=== PATIENT | female | born 1930 | race Caucasian/White ===

== ENCOUNTER 2019-05-02 13:14 | Inpatient (IN) ==
--- NOTE | 2019-05-02 14:54 | Diag Imaging Result Doc PS360 ---
CHEST-1 VIEW - 05/02/2019 INDICATION: fall, injury COMPARISON: None FINDINGS: There is a left-sided dual-chamber pacemaker in good position. There is mild cardiomegaly and pulmonary vascular congestion. There is a small right basilar pleural effusion. No dense infiltrates or definite pulmonary edema. IMPRESSION: Cardiomegaly and pulmonary vascular congestion. Small nonspecific right pleural effusion. Electronically signed by Tay Farley 05/02/2019 2:51 PM
--- NOTE | 2019-05-02 15:01 | Diag Imaging Result Doc PS360 ---
CT T-SPINE/L-SPINE W/O CON - 05/02/2019 INDICATION: fall injury COMPARISON: None FINDINGS: Alignment is anatomic. There is advanced multilevel degenerative disc disease globally throughout the thoracic and lumbar spine. There is a small to moderate right pleural effusion. There are nondisplaced posterior rib fractures on the right side, ribs #11 and 12. No pneumothorax. No other infiltrates throughout the lungs. No evidence of edema. There is cardiomegaly. Vertebral body heights are preserved. There are slightly displaced right-sided transverse process fractures at L2, L3, and L4. There are small bilateral nonobstructing renal stones. There is extremely severe, diffuse vascular calcification of the aorta and all of its branches. IMPRESSION: 1. Acute nondisplaced posterior right rib fractures. 2. Acute fractures of right-sided transverse processes of L2, L3, and L4. 3. Small to moderate right pleural effusion. 4. Small nonobstructing bilateral renal stones. This exam was performed using automated exposure control, adjustment of mA or kV according to patient size, and/or use of iterative reconstruction technique Electronically signed by Tay Farley 05/02/2019 2:59 PM
--- NOTE | 2019-05-02 15:09 | Diag Imaging Result Doc PS360 ---
EXAM: CT HEAD/C-SPINE W/O CONTRAST HISTORY: head injury/pain TECHNIQUE: Routine noncontrasted CT scan of the brain and cervical spine as per standard protocol. Dose reduction technique. COMPARISON: None. FINDINGS: Head: There is no evidence for hemorrhage, hydrocephalus, mass effect, or fluid collection. There is cerebral atrophy and microvascular disease. The calvarium is intact. Cervical Spine: There is no prevertebral soft tissue swelling. Alignment is anatomic. No fracture or subluxation is appreciated. There is degenerative uncovertebral and facet joint hypertrophy IMPRESSION: No acute intracranial abnormality. No acute abnormalities cervical spine. . This exam was performed using automated exposure control, adjustment of mA or kV according to patient size, and/or use of iterative reconstruction technique. Electronically signed by Lyric Claudio 05/02/2019 3:07 PM
[2019-05-02 15:52] LABS: BILIRUBIN URINE NEGATIVE (NEGATIVE); BLOOD URINE TRACE (NEGATIVE); CLARITY SL. CLOUDY (CLEAR); COLOR YELLOW; GLUCOSE URINE NEGATIVE (NEGATIVE); KETONE URINE NEGATIVE (NEGATIVE); LEUKOCYTES URINE TRACE (NEGATIVE); NITRITE URINE NEGATIVE (NEGATIVE); PH URINE 6.5; PROTEIN URINE 2+(100 mg/dL) mg/dL (NEGATIVE); UROBILINOGEN URINE NORMAL
[2019-05-02 16:01] LABS: HEMATOCRIT 29.3 % (37.0-47.0); HEMOGLOBIN 9.3 g/dL (12.0-16.0); MCH 27.8 PG (27-31); MCHC 31.7 g/dL (33-37); MCV 87.5 FL (81-99); RBC 3.35 XMIL (4.2-5.4); WBC 11.32 X1000 (4.8-10.8)
[2019-05-02 16:02] LABS: BASO# 0.03 X1000 (0.0-0.2); BASO% 0.3 % (0.0-0.8); EOS% 0.9 % (0.0-10.0); IMM GRAN# 0.02 X1000 (0.0-0.04); IMM GRAN% 0.2 % (0.0-0.5); LYMPH# 2.07 X1000 (1.2-3.4); LYMPH% 18.3 % (20.5-51.1); MONO# 2.07 X1000 (0.11-0.59); MONO% 18.3 % (1.7-9.3); MPV 12.3 FL (7.4-10.4); NEUT# 7.03 X1000 (1.4-6.5); PLT 240 X1000 (130-400); RDW 14.3 % (11.5-14.5)
[2019-05-02 16:12] LABS: ALBUMIN 3.2 g/dL (3.5-5.0); CALCIUM 8.3 mg/dL (8.8-10.2); CREATININE 2.2 mg/dL (0.5-0.9); POTASSIUM 3.6 mmol/L (3.5-5.1); TOTAL BILIRUBIN 0.5 mg/dL (0.20-1.00); TOTAL PROTEIN 6.1 g/dL (6.3-8.3)
[2019-05-02 16:16] LABS: URINE WBC <10 /HPF (<10)
[2019-05-02 16:17] LABS: URINE BACTERIA 1+ /HFP; URINE CAST NONE SEEN /LPF; URINE CRYSTAL NONE SEEN /HPF; URINE EPITHELIAL CELLS <10 /HPF (<10); URINE RBC <10 /HPF (<10); URINE SMALL ROUND CELLS TRANSITIONAL PRESENT; URINE YEAST NONE SEEN /HPF
[2019-05-02 16:18] LABS: URINE SOURCE CATH
--- NOTE | 2019-05-02 16:42 | PROVIDER DOCUMENTATION ---
This chart was entered by Kayleigh Rivas Scribe, acting as scribe for Gautam Bucio MD. HPI-General Adult - General Chief Complaint: Fall Stated Complaint: Fall Time Seen by Provider: 05/02/19 13:33 Source: patient, family (daughter oscar), EMS Allergies/Adverse Reactions: Patient Allergies Allergy/AdvReac Type Severity Reaction Status Date / Time meperidine [From Demerol] Allergy DIZZINESS Verified 05/02/19 13:25 Home Medications: Home Medication List Medication Instructions Recorded Confirmed Last Taken Type Acetaminophen [Arthritis Pain] 650 mg PO Q8HR 05/02/19 05/02/19 Unknown History Alprazolam 1 mg PO TID 05/02/19 05/02/19 Unknown History Amlodipine [Norvasc] 10 mg PO DAILY 05/02/19 05/02/19 Unknown History Apixaban [Eliquis] 2.5 mg PO BID 05/02/19 05/02/19 Unknown History Carvedilol 25 mg PO BID 05/02/19 05/02/19 Unknown History Cephalexin [Keflex] 500 mg PO TID 05/02/19 05/02/19 Unknown History Clobetasol Prop 0.05% Cream 0.5 mg TOP DAILY 05/02/19 05/02/19 Unknown History [Temovate 0.05% Cream] Clonidine HCl 0.1 mg PO TID 05/02/19 05/02/19 Unknown History Cyclobenzaprine [Flexeril] 10 mg PO QHS 05/02/19 05/02/19 Unknown History Dronedarone HCl [Multaq] 0.5 tab PO BID 05/02/19 05/02/19 Unknown History Duloxetine [Cymbalta] 60 mg PO DAILY 05/02/19 05/02/19 Unknown History Fenofibrate,Micronized 134 mg PO QHS 05/02/19 05/02/19 Unknown History [Fenofibrate] Fluphenazine [Prolixin] 1 mg PO DAILY 05/02/19 05/02/19 Unknown History Furosemide [Lasix] 20 mg PO DAILY 05/02/19 05/02/19 Unknown History Hydralazine [Apresoline] 75 mg PO TID 05/02/19 05/02/19 Unknown History Hyoscyamine Sulfate [Hyosyne] 0.125 mg PO Q4HR 05/02/19 05/02/19 Unknown History LISINOpril [Prinivil] 20 mg PO BID 05/02/19 05/02/19 Unknown History Levothyroxine [Synthroid] 75 microgm PO DAILY 05/02/19 05/02/19 Unknown History Lorazepam 0.25 mg IJ Q4HR 05/02/19 05/02/19 Unknown History Meclizine [Antivert] 1 tab PO TID 05/02/19 05/02/19 Unknown History Morphine Sulfate/Pf [Morphine 1 0.25 mg IJ DAILY PRN PRN 05/02/19 05/02/19 Unknown History mg/ml Vial] [place]-3 Fatty Acids/Fish Oil [Fish 1 cap PO DAILY 05/02/19 05/02/19 Unknown History Oil 1,000 mg Capsule] Pravastatin Sodium 80 mg PO QHS 05/02/19 05/02/19 Unknown History Sennosides/Docusate Sodium 1 - 4 tab PO DAILY 05/02/19 05/02/19 Unknown History [Senna-S Tablet] Tramadol [Ultram] 1 tab PO Q4-6H PRN PRN 05/02/19 05/02/19 Unknown History - History of Present Illness -Gen Adult Nature of Presenting Problems: 88 yowf presents to the ed via ems (first response) with increase of falls, balance issues, confusion and failed out tx for UTI. pt started 2nd round of abx today and was told by hospice nurse not to take blood thinner dose today. pt is on hospice and was sent to ed to be seen by hospice nurse. pt on exam has a healing skin tear and abrasions noted to RLE with bandage in place. pt will answer questions appropriately when asked directly but otherwise daughter speaks for the pt. pt on exams nontoxic in appearance Location of Pain/Injury: reports: lower extremity, generalized (weakness) Quality of Pain: reports: aching Severity: reports: moderate Onset/Duration: reports: 1 week ago (frequent falls) Timing: reports: still present, intermittent Context/Activities at Onset: reports: light activity Modifying Factors: improves with: nothing. worse with: movement Associated Symptoms: reports: genitourinary problems (UTI), weakness, trouble walking (balnce issues). denies: back/neck pain, chest pain, cough, fever/chills, headaches, nausea, seizure, shortness of breath, syncope Similar Symptoms Previously?: Yes Recently seen or treated by another doctor?: Yes Review of Systems - Adult - REVIEW OF SYSTEMS - ADULT ROS:: ROS per family (daughter Oscar) Constitutional: denies: chills, fever Eyes: denies: blurred vision, double vision Ears, Nose, Mouth & Throat: reports: no symptoms reported Cardiovascular: denies: chest pain, palpitations, syncope Respiratory: denies: shortness of breath, wheezing Gastrointestinal: denies: diarrhea, nausea, vomiting Genitourinary: reports: see HPI, frequent UTI's, hematuria, incontinence Musculoskeletal: denies: back pain, neck pain Integumentary: reports: no symptoms reported Neurological: reports: see HPI, loss of balance. denies: dizziness/vertigo, hea dache/migraines, seizure, slurred speech, syncope, tremors Psychiatric: reports: no symptoms reported Endocrine: reports: no symptoms reported Hematologic/Lymphatic: reports: no symptoms reported Allergic/Immunologic: reports: no symptoms reported All Other Systems: Reviewed and Negative Past History - Adult - PAST MEDICAL HISTORY-ADULT Review of Records: reports: Old Records Reviewed, Nursing Assessment Review, Medications Reviewed, Social history reviewed & non-contributory. Major Childhood Illnesses: reports: denies history Cardiovascular: reports: A-Fib, CAD, HTN, pacemaker Respiratory: reports: denies history Gastrointestinal: reports: denies history Obstetrical/Gynecological: reports: denies history Genitourinary: reports: incontinence, chronic UTI's Musculoskeletal: reports: chronic pain, other (spinal stenosis) Hand Dominance: Right Handed Neurological: reports: denies history Psychiatric: reports: denies history Endocrine/Immune: reports: denies history Other Conditions: reports: denies history - PRIOR SURGERIES/PROCEDURES Surgical/Procedure History: reports: cardiac stent, pacemaker, hysterectomy - IMMUNIZATION STATUS Childhood Immunizations: See Nurse Assessment Flu Vaccine: See Nurse Assessment - FAMILY HISTORY Family History: reviewed, not pertinent - SOCIAL HISTORY Smoking: denies Substance Use: denies Alcohol Use Frequency: never Living Situation: family (lives with daughter Oscar) Physical Exam-General - PHYSICAL EXAM-ADULT Initial Vital Signs Reviewed: Yes - CONSTITUTIONAL General Appearance: appears well, no apparent distress - EYES Eyes: PERRL/EOMI, pink conjunctivae - HEAD, EARS, NOSE, MOUTH & THROAT HENMT: moist mucous membranes - NECK Neck: non-tender, normal inspection - RESPIRATORY Respiratory: chest non-tender, lungs clear, normal breath sounds, other (noted O2 sat 90% on RA but is in no distress) - CARDIOVASCULAR Cardiovascular: normal peripheral pulses, regular rate, rhythm - CHEST (BREASTS) Chest/Breast: deferred - GASTROINTESTINAL (ABDOMEN) Abdominal Exam: normal bowel sounds, non tender, soft - GENITOURINARY Female Genitalia/Pelvic Exam: deferred, other (pt has on brief) Rectal Exam: deferred Hemoccult Exam: deferred - LYMPHATIC Lymphatic: no adenopathy - MUSCULOSKELETAL Back Exam: normal inspection, no CVA tenderness, no vertebral tenderness Extremity: normal capillary refill, pelvis stable, swelling (BLE R>L), tenderness (RLE with bandage inplace. pt has healing skin tear to anterior of leg and abrasions that are healing on medial rt knee from fall on tuesday) - SKIN Integumentary: normal color, normal turgor, warm/dry - NEUROLOGIC Neurologic: grossly normal - PSYCHIATRIC Psych/Mental Status: normal mood/affect, normal thought content, normal thought process Progress - PLAN OF CARE/RESULTS Progress/Plan/Lab Results: Vital Signs - 8 hr 05/02/19 13:21 Temperature 98.4 F Pulse Rate 69 Respiratory Rate 16 Blood Pressure 149/54 O2 Sat by Pulse Oximetry 90 L Result Diagrams: 05/02/19 14:08 05/02/19 14:08 - REASSESSMENT Reassessment #1 Time Reassessed: 14:55 (hospice nurse at bedside) Status: unchanged - XRAY 1 XRAY: Bilateral XRAY Study: Chest Impression: See EMR Report (CHEST-1 VIEW - 05/02/2019 INDICATION: fall, injury COMPARISON: None FINDINGS: There is a left-sided dual-chamber pacemaker in good position. There is mild cardiomegaly and pulmonary vascular congestion. There is a small right basilar pleural effusion. No dense infiltrates or definite pulmonary edema. IMPRESSION: Cardiomegaly and pulmonary vascular congestion. Small nonspecific right pleural effusion. Electronically signed by Tay Farley 05/02/2019 2:51 PM 05/02/19 0864 Interpreting Physician: Tay Farley MD Dictated Date/Time: 05/02/19 6811 cc: Gautam Bucio MD; None,PCP) - CT/MRI 1 CT Study: other (CT T-SPINE/L-SPINE W/O CON - 05/02/2019 INDICATION: fall injury COMPARISON: None FINDINGS: Alignment is anatomic. There is advanced multilevel degenerative disc disease globally throughout the thoracic and lumbar spine. There is a small to moderate right pleural effusion. There are nondisplaced posterior rib fractures on the right side, ribs #11 and 12. No pneumothorax. No other infiltrates throughout the lungs. No evidence of edema. There is cardiomegaly. Vertebral body heights are preserved. There are slightly displaced right-sided transverse process fractures at L2, L3, and L4. There are small bilateral nonobstructing renal stones. There is extremely severe, diffuse vascular calcification of the aorta and all of its branches. IMPRESSION: 1. Acute nondisplaced posterior right rib fractures. 2. Acute fractures of right-si ded transverse processes of L2, L3, and L4. 3. Small to moderate right pleural effusion. 4. Small nonobstructing bilateral renal stones. This exam was performed using automated exposure control, adjustment of mA or kV according to patient size, and/or use of iterative reconstruction technique Electronically signed by Tay Farley 05/02/2019 2:59 PM 05/02/19 145 Interpreting Physician: Tay Farley MD Dictated Date/Time: 05/02/19 1451 cc: Gautam Bucio MD; None,PCP) 2 CT Study: Cervical Spine, Head (EXAM: CT HEAD/C-SPINE W/O CONTRAST HISTORY: head injury/pain TECHNIQUE: Routine noncontrasted CT scan of the brain and cervical spine as per standard protocol. Dose reduction technique. COMPARISON: None. FINDINGS: Head: There is no evidence for hemorrhage, hydrocephalus, mass effect, or fluid collection. There is cerebral atrophy and microvascular disease. The calvarium is intact. Cervical Spine: There is no prevertebral soft tissue swelling. Alignment is anatomic. No fracture or subluxation is appreciated. There is degenerative uncovertebral and facet joint hypertrophy IMPRESSION: No acute intracranial abnormality. No acute abnormalities cervical spine. . This exam was performed using automated exposure control, adjustment of mA or kV according to patient size, and/or use of iterative reconstruction technique. Electronically signed by Lyric Claduio 05/02/2019 3:07 PM 05/02/19 1507 Interpreting Physician: Lyric Claudio MD Dictated Date/Time: 05/02/19 1456 cc: Gautam Bucio MD; None,PCP) - CONSULTS/PCP/HOSPITALIST Notification #1 *Consult/PCP/Hospitalist*: hospice nurse Time Discussed: 15:12 (spoke with dr bucio about poc) #2 Consult: PRESCHOOL TEACHER AIDE Lyn for Dr Sher Time Discussed: 16:40 Consult Disposition: Will see in ED, Admit Departure - Departure Date of Disposition Decision: 05/02/19 Time of Disposition Decision: 16:40 DIAGNOSIS: Fall, Rib fractures, Multiple transverse process fractures, UTI (urinary tract infection) Disposition: ADMITTED INPATIENT 09 Certified Medical Emergency: Emergent Condition: Stable Referrals and Follow-Ups: None,PCP [Primary Care Provider] - - Critical Care Note This patient required my direct & personal management of CC.: Yes Total Time (mins): 32 Critical Care Statement: This patient required my direct personal management to treat or rule out processes, the absence of which, could potentiallly result in sudden, clinically significant life or limb threatening deterioration. Attestation - Physician/ [facility] Attestation Patient care was provided by Advanced Practice Provider:: No The physician spent face to face time with patient:: Yes Advanced Practice Provider documentation review:: Supervising physician onsite and consulted in the evaluation and care of this patient. The physician did have a face to face encounter with the patient. This chart was documented by the indicated scribe, (Kayleigh Rivas Scribe) and accurately reflects the services I performed and decisions made by me, Gautam Bucio MD, as attested by the provider's signature.
[2019-05-02 18:24] LABS: BILIRUBIN URINE NEGATIVE (NEGATIVE); BLOOD URINE NEGATIVE (NEGATIVE); CLARITY CLEAR (CLEAR); COLOR YELLOW; GLUCOSE URINE NEGATIVE (NEGATIVE); KETONE URINE TRACE mg/dL (NEGATIVE); LEUKOCYTES URINE TRACE (NEGATIVE); NITRITE URINE NEGATIVE (NEGATIVE); PROTEIN URINE 2+(100 mg/dL) mg/dL (NEGATIVE); SP GRAVITY URINE 1.015; UROBILINOGEN URINE NORMAL
[2019-05-02] MEDS ORDERED: TYLENOL PO PRN (18:25)
[2019-05-02 18:26] LABS: URINE EPITHELIAL CELLS <10 /HPF (<10)
[2019-05-02 18:27] LABS: URINE BACTERIA 1+ /HFP; URINE RBC <10 /HPF (<10); URINE WBC <10 /HPF (<10)
[2019-05-02 18:28] LABS: URINE CAST NONE SEEN /LPF; URINE SOURCE CATH; URINE YEAST NONE SEEN /HPF
[2019-05-02 18:29] LABS: URINE CRYSTAL NONE SEEN /HPF
[2019-05-02 18:30] LABS: URINE SMALL ROUND CELLS TRANSITIONAL PRESENT
[2019-05-02] MEDS: APRESOLINE PO SCH (18:50)
--- NOTE | 2019-05-02 19:13 | HISTORY AND PHYSICAL ---
ADDENDUM: Patient seen and examined. Full note dictated and discussed with nurse practitioner. Patient unfortunately has been falling at home. She has had increased difficulty walking. She has had some confusion. Typically she uses a walker, but for some reason, the past 2 times she has fallen, she has chosen not to. Discussed with the family Code status. I also discussed stopping her Eliquis, which she uses for history of coronary disease. We are going to admit to the hospital. Continue to follow. Further orders as needed. cc: Rojelio Sher MD
--- NOTE | 2019-05-02 19:45 | HISTORY AND PHYSICAL ---
CHIEF COMPLAINT: Fall. HISTORY OF PRESENT ILLNESS: This is an 88-year-old female with a history of congestive heart f ailure, spinal stenosis, hypertension, chronic pain, CAD status post pacemaker, atrial fib on chronic anticoagulation with Eliquis. She presented to the emergency room with her daughter, other family members after having multiple falls this week. Reportedly, she was diagnosed with a UTI 4-5 weeks ago and is currently on her 2nd round of antibiotics. In this time, she has become weaker, having difficulty walking and standing, using a walker and sometimes requiring her families assistance. Over the last week, she has gotten up while alone and attempted to walk without the aid of her walker or family members, falling multiple times. CT scans revealed acute nondisplaced posterior rib fractures on the right #11 and 12 with slightly displaced right-sided transverse process fractures L2, L3 and L4. At the time of my exam the patient is sitting up in the bed. She will attempt to answer questions. Speech is garbled at times, which is her normal. She does follow simple commands. PAST MEDICAL HISTORY: 1. Atrial fibrillation on chronic anticoagulation with Eliquis. 2. Coronary artery disease. 3. Pacemaker. 4. Hypertension. 5. Spinal stenosis. 6. Hypothyroid ALLERGIES: Demerol, which causes dizziness. HOME MEDICATIONS: A list will be obtained by the nursing staff and once verified, we will review and restart as is appropriate. REVIEW OF SYSTEMS: Unable to obtain from the patient. PHYSICAL EXAMINATION: GENERAL: This is an 88-year-old female who is sitting up on the stretcher in the emergency room in no distress. VITAL SIGNS: Blood pressure is 162/65 with a heart rate of 74, respirations are 17, temperature is 97.9 degrees with room air saturations 97% to 100%. HEENT: Head is normocephalic, atraumatic. Mucous membranes are moist. NECK: Supple with trachea midline. CARDIOVASCULAR: Regular rate and rhythm. S1 and S2 appreciated. She has bilateral lower extremity edema up to her thighs, which is chronic with peripheral pulses palpable x4 extremities. PULMONARY: Breath sounds are clear with no increased work of breathing noted. Chest rises and falls symmetric with respiration. GASTROINTESTINAL: Abdomen is soft, nontender, nondistended with bowel sounds in all 4 quadrants. SKIN: Warm and dry. She is noted to have a skin tear to her right forearm. SKIN: Warm and dry. She has bandages to bilateral forearms that the daughter states were skin tears. Right petersen has bruising that is about 6 inches long with skin tears to her knee. She has bruising to her back. She is noted to have excoriation to her perineal area. LABORATORY DATA: WBC is 11.3 with hemoglobin 9.3, hematocrit 29.3, and platelets 240,000. Sodium 138, potassium 3.6, BUN 35, creatinine 2.2 with a glucose of 120. Urinalysis reveals 2+ protein with less than 10 microscopic white blood cells and red blood cells with 1+ bacteria. IMAGIN. Chest x-ray reveals cardiomegaly and pulmonary vascular congestion with small nonspecific right pleural effusion. 2. CT of the head and cervical spine revealed no acute intracranial abnormality. No acute abnormalities to the cervical spine. 3. CT of the T-spine and L-spine with acute nondisplaced posterior rib fractures to ribs #11 and 12, acute fractures of right-sided transverse process of L2, L3 and L4. Small to moderate right pleural effusion with small nonobstructing bilateral renal stones. There is extremely severe diffuse vascular calcifications of the aorta and all its branches. MICROBIOLOGY DATA: Urine culture is pending. ASSESSMENT AND PLAN: 1. Frequent falls secondary to generalized lower extremity weakness. 2. Posterior rib fractures, right #11 and 12 ribs. 3. Acute minimally displaced right-sided transverse process fractures at L2, L3 and L4. 4. Small to moderate right pleural effusion. 5. Leukocytosis. 6. Recent urinary tract infection currently on antibiotics. 7. Acute kidney injury. 8. Hypothyroid. 9. Coronary artery disease. 10. Permanent pacemaker. 11. History of atrial fibrillation on chronic anticoagulation, which was stopped 05/01/2019. PLAN: The patient will be admitted to the medical-surgical floor. She will be placed on telemetry. Supplemental oxygen as needed. Regular diet as tolerated. Hold anticoagulation at present. Consult Wound Care as well as Rn House Supervisor for discharge planning and possible rehab. identify her home medications and continue Moran catheter with ins and outs, urine culture incentive spirometer every 4 hours. TSH, BMP, CBC with differential, total CK in the morning We are unsure of any previous cultures. Reportedly, she has received 2 antibiotics in the past 4 weeks, currently on Keflex The first antibiotic given is unknown. Rocephin and then further antibiotics will be culture driven. gentle hydration, giving saline at 50 mL an hour. Family members have rescinded hospice. We did discuss code status. The patient's wishes were to have no chest compressions, no intubation, which the family agrees. Therefore, she will be a DNR level 1 in complying with their wishes. Plan was discussed with Dr. Sher. Further treatments pending hospital course. Dictated by JOSE E Nicholas for Rojelio Sher MD cc: JOSE E Nicholas MD [facility]
[2019-05-02] MEDS: NS 1,000 ML IV SCH (20:21)
[2019-05-02] MEDS: ROCEPHIN 1 GM in NS 50 ML IV SCH (20:21)
[2019-05-02] MEDS: ULTRAM PO PRN (20:22)
[2019-05-02] MEDS: COREG PO SCH (20:22)
[2019-05-02] MEDS: MULTAQ PO SCH (20:22)
[2019-05-03] MEDS: APRESOLINE PO SCH ×3 (03:45→17:49)
[2019-05-03] MEDS: XANAX PO PRN ×3 (03:51→23:52)
[2019-05-03] MEDS: ULTRAM PO PRN ×3 (03:51→15:27)
[2019-05-03 06:02] LABS: BASO# 0.02 X1000 (0.0-0.2); BASO% 0.2 % (0.0-0.8); EOS# 0.07 X1000 (0.0-0.7); EOS% 0.8 % (0.0-10.0); HEMATOCRIT 26.1 % (37.0-47.0); HEMOGLOBIN 8.2 g/dL (12.0-16.0); IMM GRAN# 0.02 X1000 (0.0-0.04); IMM GRAN% 0.2 % (0.0-0.5); LYMPH# 1.61 X1000 (1.2-3.4); LYMPH% 18.5 % (20.5-51.1); MCH 27.5 PG (27-31); MCHC 31.4 g/dL (33-37); MCV 87.6 FL (81-99); MONO# 1.46 X1000 (0.11-0.59); MONO% 16.8 % (1.7-9.3); MPV 11.9 FL (7.4-10.4); NEUT# 5.51 X1000 (1.4-6.5); NEUT% 63.5 % (42.2-75.2); PLT 212 X1000 (130-400); RBC 2.98 XMIL (4.2-5.4); RDW 14.1 % (11.5-14.5); WBC 8.69 X1000 (4.8-10.8)
[2019-05-03 06:26] LABS: CALCIUM 7.9 mg/dL (8.8-10.2); CREATININE 1.9 mg/dL (0.5-0.9); POTASSIUM 3.3 mmol/L (3.5-5.1)
[2019-05-03] MEDS: NORVASC PO SCH (08:20)
[2019-05-03] MEDS: COREG PO SCH ×2 (08:20→21:16)
[2019-05-03] MEDS: LASIX PO SCH (08:20)
[2019-05-03] MEDS: SYNTHROID PO SCH (08:20)
[2019-05-03] MEDS: PROLIXIN PO SCH (08:20)
[2019-05-03] MEDS: FISH OIL CONCENTRATE PO SCH (08:20)
[2019-05-03] MEDS: MULTAQ PO SCH ×2 (08:20→21:16)
[2019-05-03] MEDS: CYMBALTA PO SCH (08:20)
[2019-05-03] MEDS: NS 1,000 ML IV SCH (14:31)
[2019-05-03] MEDS: ROCEPHIN 1 GM in NS 50 ML IV SCH ×2 (17:51→18:10)
--- NOTE | 2019-05-03 22:05 | PROGRESS NOTE ---
DATE: 05/03/2019 SUBJECTIVE: Patient has no new complaints. Still has generalized weakness. OBJECTIVE: Temperature 98, pulse 62, respiratory 18, BP 133/34.General: Patient is awake. She is in no distress. HEENT: Normocephalic. Neck: Supple. Cardiovascular: Regular rate. Chest: Clear. Abdomen: Soft. Extremities: Moves all extremities. ASSESSMENT: 1. Acute on chronic renal failure. Creatinine is actually improved. 2. Acute minimally displaced right-sided transverse fractures of L2, 3 and 4. 3. Posterior rib fractures at 11 and 12. 4. Frequent falls. 5. Generalized weakness. 6. Leukocytosis resolved. 7. Hypothyroidism. 8. Known coronary artery disease. PLAN: We will continue patient in the hospital. Continue to follow. Continue physical therapy. Expect she may need rehab. cc: Rojelio Sher MD
[2019-05-04] MEDS: APRESOLINE PO SCH ×3 (02:03→18:10)
[2019-05-04] MEDS: ULTRAM PO PRN ×2 (02:08→20:40)
[2019-05-04 05:44] LABS: HEMATOCRIT 29.5 % (37.0-47.0); MCH 26.7 PG (27-31); MCHC 30.5 g/dL (33-37); MCV 87.5 FL (81-99); RBC 3.37 XMIL (4.2-5.4); RDW 13.8 % (11.5-14.5); WBC 10.45 X1000 (4.8-10.8)
[2019-05-04 06:07] LABS: ALBUMIN 2.9 g/dL (3.5-5.0); CALCIUM 8.2 mg/dL (8.8-10.2); CREATININE 1.6 mg/dL (0.5-0.9); MAGNESIUM 1.9 mg/dL (1.5-2.7); POTASSIUM 3.5 mmol/L (3.5-5.1); TOTAL BILIRUBIN 0.3 mg/dL (0.20-1.00); TOTAL PROTEIN 5.9 g/dL (6.3-8.3)
[2019-05-04] MEDS: SYNTHROID PO SCH (06:11)
[2019-05-04] MEDS: MULTAQ PO SCH ×2 (08:25→20:40)
[2019-05-04] MEDS: FISH OIL CONCENTRATE PO SCH (09:25)
[2019-05-04] MEDS: PROLIXIN PO SCH (09:25)
[2019-05-04] MEDS: LASIX PO SCH (09:25)
[2019-05-04] MEDS: COREG PO SCH ×2 (09:26→20:40)
[2019-05-04] MEDS: CYMBALTA PO SCH (09:26)
[2019-05-04] MEDS: NORVASC PO SCH (09:26)
[2019-05-04] MEDS: NS 1,000 ML IV SCH (11:00)
[2019-05-04] MEDS: TYLENOL PO PRN (13:27)
--- NOTE | 2019-05-04 16:19 | ORTHOPAEDICS CONSULTATION ---
DATE: 05/04/2019 CHIEF COMPLAINT: Fall. HISTORY OF PRESENT ILLNESS: This is an 88-year-old female status post fall at home who was admitted by the hospitalist. She was found to have multiple contusions but also some transverse process fractures of the lower lumbar spine at L2, L3, L4. She was also noted to have some rib fractures. She was admitted for hospital management and pain control as well as rehab purposes. She reports some diffuse soreness in the lower back. PAST MEDICAL HISTORY: Significant for atrial fibrillation, coronary disease, hypertension, spinal stenosis, hypothyroidism. FAMILY HISTORY: Resides with her daughter in the area who assists with household activities. She is minimal household ambulator without assistance. CURRENT MEDICATIONS: As listed on the hospital admission chart. ALLERGIES: Demerol with dizziness. PHYSICAL EXAMINATION: Reveals her to have some tenderness of the lower lumbar spine. There is some ecchymoses and bruising over the lower extremity. There is no deformities. Compartments are soft. I do not detect any focal motor or sensory deficits. IMAGING STUDIES: X-rays are reviewed and include a CT of the spine, which shows minimally displaced transverse process fractures on the right side of L2, 3-4. There is no separation at the SI joint below it. ASSESSMENT: Stable spinous process fractures. PLAN: Patient can be mobilized with physical therapy as tolerated. She will need to follow up with a spine doctor in roughly a month for followup x-rays of the back. I have ordered therapy to go ahead and begin mobilization. The fractures appear to be stable enough. I think any back brace would cause significant pain or pressure sores and given her mobility status, I think she would be fine to mobilize without any bracing. cc: Georges Rodriguez MD
[2019-05-04] MEDS: ROCEPHIN 1 GM in NS 50 ML IV SCH (18:10)
--- NOTE | 2019-05-04 18:58 | PROGRESS NOTE ---
DATE: 05/04/2019 SUBJECTIVE: Patient's daughter has no new complaints. States the patient seems to be doing a little bit better. She is still very weak. Still has lots of difficulty with movement. OBJECTIVE: Vital Signs: Temperature 98, pulse 62, respiratory 20, BP 130s systolic. General: Patient is awake. She is in no distress. HEENT: Normocephalic. Neck: Supple. Cardiovascular: Regular rate. Chest: Clear. Abdomen: Soft. Extremities: Moves all extremities. ASSESSMENT: 1. Acute on chronic renal failure. Creatinine is down to 1.6. 2. Volume depletion is causing her acute on chronic renal failure. 3. Recent urinary tract infection. 4. Hypothyroidism. 5. Known coronary artery disease. 6. Adult failure to thrive with frequent falls and various stages of healing fractures. cc: Rojelio Sher MD
[2019-05-04] MEDS: XANAX PO PRN (20:40)
[2019-05-05] MEDS: APRESOLINE PO SCH ×5 (01:17→18:08)
[2019-05-05] MEDS: ULTRAM PO PRN (01:18)
[2019-05-05] MEDS: XANAX PO PRN (01:18)
[2019-05-05] MEDS: SYNTHROID PO SCH (06:15)
[2019-05-05] MEDS: CYMBALTA PO SCH (08:51)
[2019-05-05] MEDS: NS 1,000 ML IV SCH (08:51)
[2019-05-05] MEDS: MULTAQ PO SCH ×2 (08:51→20:25)
[2019-05-05] MEDS: FISH OIL CONCENTRATE PO SCH (08:51)
[2019-05-05] MEDS: LASIX PO SCH (08:51)
[2019-05-05] MEDS: COREG PO SCH ×2 (08:51→20:25)
[2019-05-05] MEDS: PROLIXIN PO SCH (08:51)
[2019-05-05] MEDS: NORVASC PO SCH (08:52)
[2019-05-05] MEDS ORDERED: XANAX PO SCH (09:00)
--- NOTE | 2019-05-05 10:07 | PROGRESS NOTE ---
DATE: 05/05/2019 SUBJECTIVE: The patient denies having any acute complaints this morning. OBJECTIVE: Vital Signs: Temperature 98.1 degrees, pulse 74 per minute, respiratory rate 22 per minute, blood pressure 163/42, pulse oximetry 91 percent on room air. General: Patient is awake and alert. She does not appear to be in any acute distress. Cardiovascular System: First and second heart sounds are audible without any murmurs or gallops. Respiratory System: No respiratory distress noted. Bilateral lung air entry is slightly decreased, but there are no rales or rhonchi present on auscultation. Gastrointestinal System: Abdomen is soft and nontender on palpation. Normal bowel sounds are present. DIAGNOSTIC DATA: CBC from 05/04/2019 showed stable H and H with hemoglobin of 9.0 and hematocrit 29.5. Chemistry from 05/04/2002 showed sodium level of 135, BUN 34, creatinine 6, and glucose levels of 113. Rest of the chemistry is nondiagnostic. Her BUN and creatinine have improved from 35 and 2.2 on 05/02/2019 to 34 and 1.6 on 04/14/2019. IMPRESSION: 1. Acute kidney injury on chronic kidney disease. 2. Coronary artery disease. 3. Hypothyroidism. 4. Chronic anemia that has remained stable. PLAN: The patient will continue to receive gentle hydration and rest of care including physical therapy. Overall his condition has been stable, and most likely he will get transferred to rehab early next week. cc: Anastasiya Hendrix MD
[2019-05-05] MEDS: ZOFRAN IV PRN ×2 (10:43→20:52)
[2019-05-05] MEDS: XANAX PO SCH ×2 (18:08→20:25)
[2019-05-06] MEDS: ULTRAM PO PRN (01:28)
[2019-05-06] MEDS: APRESOLINE PO SCH ×3 (02:03→18:40)
[2019-05-06] MEDS: TYLENOL PO PRN (02:48)
[2019-05-06] MEDS: NS 1,000 ML IV SCH (04:44)
[2019-05-06] MEDS: SYNTHROID PO SCH ×2 (06:09→06:11)
[2019-05-06 06:57] LABS: BASO# 0.01 X1000 (0.0-0.2); BASO% 0.1 % (0.0-0.8); HEMATOCRIT 27.5 % (37.0-47.0); HEMOGLOBIN 8.4 g/dL (12.0-16.0); IMM GRAN# 0.04 X1000 (0.0-0.04); IMM GRAN% 0.4 % (0.0-0.5); LYMPH# 1.29 X1000 (1.2-3.4); LYMPH% 11.8 % (20.5-51.1); MCH 26.8 PG (27-31); MCHC 30.5 g/dL (33-37); MCV 87.9 FL (81-99); MONO% 11.9 % (1.7-9.3); NEUT# 8.28 X1000 (1.4-6.5); NEUT% 75.8 % (42.2-75.2); PLT 311 X1000 (130-400); RBC 3.13 XMIL (4.2-5.4); RDW 13.8 % (11.5-14.5); WBC 10.92 X1000 (4.8-10.8)
[2019-05-06 07:02] LABS: SEGS 78 % (42-75)
[2019-05-06 07:03] LABS: LYMPHS 12 % (21-51); MONO 10 % (1-9)
[2019-05-06 07:18] LABS: MAGNESIUM 1.8 mg/dL (1.5-2.7)
[2019-05-06] MEDS ORDERED: KLOR-CON PO ONE (09:11)
[2019-05-06] MEDS ORDERED: SODIUM CHLORIDE 0.9% INJ SCH (10:15)
[2019-05-06] MEDS: NORVASC PO SCH (11:57)
[2019-05-06] MEDS: COREG PO SCH ×2 (11:57→20:02)
[2019-05-06] MEDS: XANAX PO SCH ×3 (11:57→20:02)
[2019-05-06] MEDS: CYMBALTA PO SCH (11:57)
[2019-05-06] MEDS: PROLIXIN PO SCH (11:58)
[2019-05-06] MEDS: MULTAQ PO SCH ×2 (11:58→20:02)
[2019-05-06] MEDS: FISH OIL CONCENTRATE PO SCH (11:58)
--- NOTE | 2019-05-06 11:58 | PROGRESS NOTE ---
DATE: 05/06/2019 SUBJECTIVE: Patient denies having any acute complaints this morning. OBJECTIVE: Vital Signs: Temperature 98.3 degrees, pulse 71 per minute, respiratory rate 22 per minute, blood pressure 151/45, pulse oximetry 96% on 2 L of oxygen via nasal cannula. General: Patient is alert and oriented x3. She does not appear to be in any acute distress. Cardiovascular System: First and second heart sounds are audible without any murmurs or gallops. Respiratory System: No respiratory distress noted. Bilateral lung air entry is moderately decreased but there are no rales or rhonchi present on auscultation. Gastrointestinal System: Abdomen is soft and nondistended. Normal bowel sounds are present. There is tympanitic note on percussion. Diagnostic Data: CBC showed WBC count of 10.92, hemoglobin 8.4, hematocrit 27.5, with an MCV of 87.9. Rest of the CBC was nondiagnostic. Basic metabolic panel obtained this morning showed a potassium level of 3.0, BUN was slightly elevated at 24 but creatinine level was found to be normal at 1.0. Rest of the basic metabolic panel was nondiagnostic. IMPRESSION: 1. Acute kidney injury, that has now improved. 2. Hypokalemia. 3. Coronary artery disease, that has been stable. 4. Hypothyroidism. 5. Anemia with the possibility of gastrointestinal bleed since the patient reportedly had vomited dark material early this morning and has a slight drop in hemoglobin and hematocrit. PLAN: I am going to replenish her potassium with the oral potassium chloride 40 mEq now and start her on Protonix 40 mg IV q.24 hours. I am also going to obtain stool for Hemoccult and give her a stool softener since she is having constipation. Rest of her medical issues are currently stable and we are going to continue providing her supportive care. She has been getting physical therapy and was initially planned to be transferred to rehab tomorrow but I believe we need to address her anemia and possible GI bleeding issue before we can transfer her out. cc: Anastasiya Hendrix MD
[2019-05-06] MEDS: MIRALAX PO SCH ×2 (14:36→20:02)
[2019-05-06] MEDS: PROTONIX IV SCH (14:36)
[2019-05-07] MEDS: APRESOLINE PO SCH ×3 (02:18→11:44)
[2019-05-07] MEDS: NS 1,000 ML IV SCH ×2 (02:18→22:50)
[2019-05-07] MEDS: SYNTHROID PO SCH (06:04)
[2019-05-07 06:33] LABS: BASO# 0.02 X1000 (0.0-0.2); BASO% 0.2 % (0.0-0.8); EOS# 0.09 X1000 (0.0-0.7); HEMOGLOBIN 8.8 g/dL (12.0-16.0); IMM GRAN# 0.02 X1000 (0.0-0.04); IMM GRAN% 0.2 % (0.0-0.5); LYMPH# 1.52 X1000 (1.2-3.4); LYMPH% 16.8 % (20.5-51.1); MCH 26.8 PG (27-31); MCHC 30.3 g/dL (33-37); MCV 88.4 FL (81-99); MONO# 1.32 X1000 (0.11-0.59); MONO% 14.6 % (1.7-9.3); MPV 11.9 FL (7.4-10.4); NEUT# 6.08 X1000 (1.4-6.5); NEUT% 67.2 % (42.2-75.2); PLT 302 X1000 (130-400); RBC 3.28 XMIL (4.2-5.4); RDW 14.2 % (11.5-14.5); WBC 9.05 X1000 (4.8-10.8)
[2019-05-07 06:46] LABS: CALCIUM 8.4 mg/dL (8.8-10.2); POTASSIUM 3.4 mmol/L (3.5-5.1)
[2019-05-07] MEDS: PROTONIX IV SCH ×2 (08:59→22:50)
[2019-05-07] MEDS: MIRALAX PO SCH ×2 (08:59→22:51)
[2019-05-07] MEDS: NORVASC PO SCH (08:59)
[2019-05-07] MEDS: CYMBALTA PO SCH (09:00)
[2019-05-07] MEDS ORDERED: KLOR-CON PO SCH (09:00)
[2019-05-07] MEDS: FISH OIL CONCENTRATE PO SCH (09:00)
[2019-05-07] MEDS: XANAX PO SCH ×3 (09:00→22:51)
[2019-05-07] MEDS: COREG PO SCH ×2 (09:00→22:50)
[2019-05-07] MEDS: MULTAQ PO SCH ×2 (09:00→22:51)
--- NOTE | 2019-05-07 10:41 | GASTROENTEROLOGY CONSULTATION ---
DATE: 05/07/2019 REQUESTING PHYSICIAN: Dr. Ghosh. REASON FOR CONSULTATION: Coffee-ground emesis. HISTORY OF PRESENT ILLNESS: Ms. Lomax is an 88-year-old female who was admitted on 05/02/2019 after a fall. The patient presented to the ER as she was having multiple falls in the last few weeks. She was also having difficulty walking and standing, and she was brought to the ER at [facility]. CT scan was done which showed acute nondisplaced posterior rib fractures on the right side at 11 through and 12th ribs with slightly displaced right- sided transverse process fracture of L2, L3, and L4. During a part of the hospitalization, she was noted to have 1 episode of coffee-grounds emesis. She was also noted to be anemic. She had been on Eliquis for atrial fibrillation from her regular floor polisher, [facility] [place]. This was stopped yesterday. The patient has put on Protonix per the primary team. The patient was transferred to [facility] for possible EGD. The patient denies any vomiting blood or passing blood in the stools. PAST MEDICAL HISTORY: 1. Atrial fibrillation on chronic anticoagulation, Eliquis. 2. Coronary artery disease. 3. Pacemaker. 4. Hypertension. 5. Spinal stenosis. 6. Hypothyroidism. 7. Recurrent falls. 8. Rib fractures. 9. Transverse process fractures L2, L3, and L4. ALLERGIES: Demerol causing dizziness. PAST SURGICAL HISTORY: She had a colonoscopy done many years ago by Dr. Varma, and she is status post pacemaker. SOCIAL HISTORY: She has a very supportive daughter at bedside. No history of alcohol, tobacco, illicit drugs. MEDICATIONS: Medications in the hospital include 1. Tylenol. 2. Xanax. 3. Norvasc. 4. Coreg. 5. Dronedarone. 6. Cymbalta. 7. Fluphenazine. 8. Hydralazine. 9. Synthroid. 10. Normal saline 15 per hour. 11. [place]-3 fatty acid. 12. Zofran. 13. Protonix IV b.i.d. which I started. 14. MiraLAX 17 g p.o. b.i.d. 15. Tramadol 50 mg every 4-6 hours as needed. 16. Potassium chloride supplement. DIET: She is currently on regular diet. REVIEW OF SYSTEMS: Denies any fevers, rigors, chills, chest pain. Does have pain in the area of the fall from the rib fractures and the back lumbar fractures. Does have some nausea and intermittent vomiting. Does have history of constipation and denies any neurological complaints. PHYSICAL EXAMINATION: Vital signs: Temperature 97.9 degrees, pulse of 66, respiratory rate 18, blood pressure 161/54, saturating 90% on 2 L cannula. Body weight of 165 pounds 4.8 ounces. BMI 26.7 kg. General: The patient is lying in bed, in no acute distress. HEENT: Pale conjunctivae. No icterus. Pupils equal, reactive to light. Neck: Supple. Abdomen: Protuberant, tympanic on percussion. No rebound or guarding. Extremities: No cyanosis, clubbing. Neurologic: She is alert and awake. Answers some questions. LABORATORY DATA: Hemoglobin and hematocrit is 8.8 and 29, white count of 9.05, platelet count of 302,000. Sodium 142, potassium 3.4, chloride 107, bicarb 27, anion of 8, BUN of 26, creatinine 1, glucose of 90, calcium is 8.4. AST 24, ALT 12, alkaline phosphatase 36, total protein 7, albumin of 2.9. Urinalysis showing 2+ protein and trace white cells on admission. Urine culture showing no growth on final report. IMAGING: Thoracic and lumbar spine CT showed acute nondisplaced posterior right rib fractures, acute fractures of the right sided transverse processes of L2, L3, L4, small to moderate right pleural effusion and small nonobstructing bilateral renal stones. Cervical spine showed no acute intracranial abnormality. No acute abnormalities in the cervical spine noted. Chest x-ray done showed cardiomegaly and pulmonary vascular congestion, small nonspecific right pleural effusion. IMPRESSION AND PLAN: 1. Coffee-grounds emesis. 2. Anemia. 3. Atrial fibrillation on Eliquis, was stopped yesterday. 4. Coronary disease. 5. Status post pacemaker. 6. Acute kidney injury. 7. Status post recurrent fall causing right posterior rib fractures and transverse process fractures L2, L3, L4. 8. Hypothyroidism. RECOMMENDATIONS: We will increase the Protonix to twice daily. We will schedule for EGD tomorrow by Dr. Odell. The risks, benefits, indications, and alternatives to procedure discussed with the patient and family, and all questions answered. The patient getting MiraLAX twice daily for constipation, and for bowel regimen. We will continue to watch the blood counts and transfuse as needed. Further recommends pending the hospital course. The above plan was discussed with the patient and family at bedside and all questions were answered. Please call us with any further questions. cc: MD Eusebio Mccray MD MTDD
--- NOTE | 2019-05-07 14:08 | PROGRESS NOTE ---
DATE: 05/07/2019 SUBJECTIVE: This morning, Ms. Lomax refers to be doing okay. I understand she was having some coffee-grounds emesis. That is the reason why she was brought to [facility] for higher level of care. She has been evaluated by GI and there is a plan for an EGD tomorrow morning. OBJECTIVE: Vital Signs: Blood pressure is 184/61, pulse of 66, respirations are 20, temperature is 97.7 degrees. General Examination: Ms. Lomax is an 88-year-old, elderly, female. She is in bed. No distress. HEENT: Mucosa is pink and moist. Anicteric. Acyanotic. Neck: Supple. Chest: Good air entry bilaterally. No crepitations. Abdomen: Soft. Distended but nontender. Some old infraumbilical surgical scars. Extremities: No pedal edema. RETAIL ACCOUNT EXECUTIVE: The patient is awake and followed basic commands. Laboratory Data: Patient has mild normocytic anemia with a normal white cell and platelet count. Chemistry is also reviewed. Potassium is 3.4. Rest of chemistry is within normal range. So far, urine culture shows no growth. The patient's current medications have all been reviewed and no changes. ASSESSMENT: 1. Normocytic anemia with coffee-grounds emesis, suspicious for gastrointestinal bleed. The patient has been evaluated and there is a plan for esophagogastroduodenoscopy tomorrow. 2. Acute kidney injury on presentation, improved. 3. Hypothyroidism. 4. History of coronary artery disease, currently asymptomatic. 5. Generalized weakness and deconditioning. Physical therapy has been consulted. 6. 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 The patient has very limited mobility at home, even prior to admission. I understand there is a plan to get her to rehab once the gastrointestinal issues are resolved. cc: Eusebio Ghosh MD
[2019-05-07] MEDS: ULTRAM PO PRN (16:35)
[2019-05-07] MEDS: PROLIXIN PO SCH (16:36)
[2019-05-08] MEDS: APRESOLINE PO SCH ×4 (02:49→18:03)
[2019-05-08] MEDS: SYNTHROID PO SCH (06:04)
[2019-05-08] MEDS: PROTONIX IV SCH ×2 (06:04→22:00)
[2019-05-08 06:35] LABS: HEMATOCRIT 31.8 % (37.0-47.0); HEMOGLOBIN 9.8 g/dL (12.0-16.0); MCH 27.6 PG (27-31); MCHC 30.8 g/dL (33-37); MCV 89.6 FL (81-99); MPV 11.6 FL (7.4-10.4); RBC 3.55 XMIL (4.2-5.4); RDW 13.9 % (11.5-14.5); WBC 10.31 X1000 (4.8-10.8)
[2019-05-08 06:54] LABS: CHLORIDE 109 mmol/L (98-107); POTASSIUM 3.4 mmol/L (3.5-5.1); SODIUM 145 mmol/L (136-145)
[2019-05-08 06:55] LABS: AGAP 10; ALBUMIN 2.9 g/dL (3.5-5.0); BUN 18 mg/dL (8-22); CALCIUM 8.8 mg/dL (8.8-10.2); COSMO 291; CREATININE 0.7 mg/dL (0.5-0.9); ESTIMATED GFR > 60; GLUCOSE 106 mg/dL (70-104); PHOSPHORUS 2.3 mg/dL (2.7-4.5); TCO2 26 mmol/L (25-35)
[2019-05-08] MEDS ORDERED: DIPRIVAN 1% ONE (08:58)
--- NOTE | 2019-05-08 09:17 | EKG Report ---
Test Performed on : 05/08/2019 09:11:21 AM Test Reason : DR DAUGHERTY Blood Pressure : / mmHG Vent. Rate : 073 BPM Atrial Rate : 073 BPM P-R Int : 156 ms QRS Dur : 098 ms QT Int : 388 ms P-R-T Axes : 058 023 095 degrees QTc Int : 427 ms Normal sinus rhythm. Nonspecific T wave abnormality Abnormal ECG No previous ECGs available Confirmed by Harjit Childress MD ([id number]) on 05/09/2019 12:01:49 PM
--- NOTE | 2019-05-08 09:40 | ENDOSCOPY OPERATIVE NOTE ---
[facility] ENDOSCOPY OPERATIVE NOTE , PATIENT: Sheila Lomax ADMISSION DATE: 05/08/2019 MR#: [id number] : 1930 [id number] EGD PROCEDURE REPORT PROCEDURE DATE: 05/08/2019 SURGEON: Art Odell MD STATUS: inpatient EQUAL OPPORTUNITY COUNSELOR: PREOPERATIVE DIAGNOSIS: The patient is a 88 yr old female here for an EGD due to coffee-ground emesi s. PROCEDURE PERFORMED: EGD w/ biopsy MEDICATIONS: Per Anesthesia TOPICAL ANESTHETIC: none CONSENT: The patient understands the risks and benefits of the procedure and understands that these r isks include, but are not limited to: sedation, allergic reaction, infection, perforation and/or bleeding. Alternative means of evaluation and treatment include, among others: physical exam, x-rays, and/or surgical intervention. The patient elects to proceed with this endoscopic procedure. HISORY AND PHYSICAL: 05/08/2019 function. Hand hygiene and appropriate measures for infection prevention was taken. After the risks, benefits and alternatives of the procedure were thoroughly explained, Informed consent was verified, confirmed and timeout was successfully executed by the treatment team. The patient was anesthetized with topical anesthesia and the [id number]-[id number] ([id number]) endoscope was introduced through the mouth and advanced to the second portion of the duoden um. Retroflexion was performed in the stomach and revealed no abnormalities. The gastroscope was then slowly withdraw n and removed. ESOPHAGUS: Esophagitis was found at the gastroesophageal junction. Esophagitis was LA Class C: Mucos al breaks continuous between > 2 mucosal folds, but involving less than 75% of the esophageal circumference. Th ere was a short benign appearing and mild stricture. The stricture was easily traversable. Few whitish circular pl aques were found in the mid to upper esophagus. A biopsy was performed using cold forceps to rule out Kenna. STOMACH: The stomach was normal. DUODENUM: The duodenum was normal. SPECIMENS REMOVED: Yes ADVERSE EVENTS: There were no complications. POSTOPERATIVE DIAGNOSIS: 1. Esophagitis at the gastroesophageal junction 2. There was a short stricture 3. Few whitish circular plaques were found in the esophagus; biopsy was performed. 4. The stomach was normal 5. The duodenum was normal RECOMMENDATIONS: 1. Continue PPI PO BID for 3 months 2. Repeat EGD in 2 months to assess for esophageal healing and dilation 3. Start mechanical soft diet and advance as tolerated REPEAT EXAM: Art Odell MD eSigned: Art Odell MD 05/08/2019 9:40 AM cc: PATIENT NAME: Sheila Lomax MR#: [id number]
[2019-05-08] MEDS: MIRALAX PO SCH (10:14)
[2019-05-08] MEDS: CYMBALTA PO SCH (10:14)
[2019-05-08] MEDS: FISH OIL CONCENTRATE PO SCH (10:16)
[2019-05-08] MEDS: PROLIXIN PO SCH (10:16)
[2019-05-08] MEDS: COREG PO SCH ×2 (10:16→22:00)
[2019-05-08] MEDS: XANAX PO SCH ×2 (10:16→14:27)
[2019-05-08] MEDS: NORVASC PO SCH (10:17)
[2019-05-08] MEDS: MULTAQ PO SCH ×2 (14:27→22:00)
--- NOTE | 2019-05-08 14:48 | PROGRESS NOTE ---
DATE: 05/08/2019 INTERVAL HISTORY: Patient is status post EGD showing esophagitis and a mild stricture. Doing well post procedure, but has not attempted p.o. yet at the time of my exam. Heart rate intermittently irregular, but patient with no history of atrial fibrillation. No other acute events. No new complaints. REVIEW OF SYSTEMS: Twelve point review of systems negative except as per interval history. LABS: WBC 10.3, hemoglobin 9.8, hematocrit 31.8, platelets 345,000. Sodium 145, potassium 3.4, BUN 18, creatinine 0.7, glucose 106. VITAL SIGNS: T-max 98.8, pulse 81, respirations 17, blood pressure 177/62, O2 saturation 97% on 2 L by nasal cannula. PHYSICAL EXAMINATION: General: No acute distress. Elderly appearing. Vital signs: As above. HEENT: Normocephalic, atraumatic. Moist mucous membranes. No cervical lymphadenopathy. Cardiovascular: Intermittently irregular but normal rate. Pulmonary: Clear to auscultation bilaterally. No wheezing, rales, or rhonchi noted. Abdomen: Soft, nontender. Bowel sounds positive. Extremities: Peripheral pulses intact. No cyanosis, clubbing, or edema. Neurologic: Cranial nerves grossly intact. Moderate global weakness but no focal deficits identified. Psychiatric: Normal mood and affect. Awake, alert, cooperative. Oriented to person and place but not time. Skin: No new rashes or lesions identified. ASSESSMENT AND PLAN: 1. Possible upper gastrointestinal bleed. Patient presented with coffee-grounds emesis. Blood counts have been relatively stable. EGD today showing esophagitis and slight stricture. Continue patient on PPI and monitor. 2. Acute kidney injury. Essentially resolved at this point. Monitor. 3. Hypothyroidism. Continue Synthroid. 4. Coronary artery disease. Currently asymptomatic. Continue Coreg. 5. Generalized weakness and deconditioning. PT is following. Likely discharge to SNF once bed is arranged. 6. History of atrial fibrillation. Patient with pacemaker and ablation in the past but reportedly has still had some intermittent atrial fibrillation. A little irregular on exam today. Off Eliquis because of gastrointestinal bleed as above. After discussion with patient and family, they do not want to restart the Eliquis. They had already been discussing the possibility of coming off of it with her regular slps because of her frequent falls. At this point, they want to keep her off it indefinitely. Discussed the risk of stroke and they accept those risks. 7. Rib fractures, lumbar spine fractures. Fractures stable. We will treat symptomatically. The patient's pain is pretty well controlled. 8. Hypokalemia, minimal. Will monitor but no need for repletion at this time. 9. Hypertension. Patient with fairly significant elevations today but we will go ahead and stop intravenous fluids. Continue Coreg and Norvasc and hydralazine. If blood pressure remains elevated, then we will consider adding some low-dose hydrochlorothiazide. 10. Disposition. If patient with no bleeding status post endoscopy, then hopefully to rehab tomorrow, pending bed availability. BRIGIDA
[2019-05-08] MEDS: ZOFRAN IV PRN ×2 (17:57→21:03)
[2019-05-09] MEDS: XANAX PO SCH ×3 (00:16→15:07)
[2019-05-09] MEDS: MIRALAX PO SCH ×2 (00:16→08:30)
[2019-05-09] MEDS: APRESOLINE PO SCH ×2 (03:00→11:08)
[2019-05-09] MEDS: TYLENOL PO PRN (04:53)
[2019-05-09] MEDS: PROTONIX IV SCH (06:02)
[2019-05-09] MEDS: SYNTHROID PO SCH (06:03)
[2019-05-09] MEDS: MULTAQ PO SCH (08:30)
[2019-05-09] MEDS: FISH OIL CONCENTRATE PO SCH (08:30)
[2019-05-09] MEDS: CYMBALTA PO SCH (08:30)
[2019-05-09] MEDS: COREG PO SCH (08:30)
[2019-05-09] MEDS: NORVASC PO SCH (08:30)
[2019-05-09] MEDS: PROLIXIN PO SCH (08:31)
--- NOTE | 2019-05-09 09:14 | PROVIDER PROGRESS NOTE ---
Progress Note S: No acute overnight events. Afebrile. No hematemesis or melena. No abdominal pain. She is tolerating soft diet. O: Last Vital Signs Temp 97.9 F 05/09/19 08:57 Pulse 76 05/09/19 08:57 Resp 19 05/09/19 08:57 BP 172/49 05/09/19 08:57 Pulse Ox 90 L 05/09/19 08:57 Height 5 ft 6 in Weight 165 lb 4.8 oz GEN: elderly, NAD HEENT: anicteric, EOMI, MMM NECK: supple, no JVD PULM: CTAB, no wheezing CV: RRR ABD: soft NT/ND, NABS EXT: no cce NEURO: nonfocal LABS: None EGD 05/08 ESOPHAGUS: Esophagitis was found at the gastroesophageal junction. Esophagitis was LA Class C: Mucosal breaks continuous between > 2 mucosal folds, but involving less than 75% of the esophageal circumference. There was a short benign appearing and mild stricture. The stricture was easily traversable. Few whitish circular plaques were found in the mid to upper esophagus. A biopsy was performed using cold forceps to rule out Kenna. STOMACH: The stomach was normal. DUODENUM: The duodenum was normal. A/P: Ms. Sheila Lomax is a 88 year old woman with AFIB on Eliquis admitted after a fall. GI consulted for coffee ground emesis and anemia likely from esophagitis found on EGD. Of note, patient has had EGDs in the remote past and has required dilation per daughter. # Hematemesis: resolved # LA grade C esophagitis: recommend continuing PPI BID for 3 months, repeat EGD in 2-3 months to assess for healing # Mild esophageal stricture: mechanical soft diet, advance as tolerated # GERD: on PPI # White plaques in esophagus: biopsies pending Will sign off. Please call with questions. Follow-up with GI in 4-6 weeks to schedule EGD
[2019-05-09] MEDS ORDERED: PRINIVIL PO SCH (10:45)
[2019-05-09 10:52] LABS: HEMOGLOBIN 9.8 g/dL (12.0-16.0); MCH 27.5 PG (27-31); MCHC 31.6 g/dL (33-37); MCV 86.8 FL (81-99); MPV 10.9 FL (7.4-10.4); RBC 3.57 XMIL (4.2-5.4); RDW 13.8 % (11.5-14.5); WBC 9.95 X1000 (4.8-10.8)
[2019-05-09 11:12] LABS: AGAP 9; BUN 16 mg/dL (8-22); CALCIUM 8.9 mg/dL (8.8-10.2); CHLORIDE 109 mmol/L (98-107); COSMO 291; CREATININE 0.7 mg/dL (0.5-0.9); ESTIMATED GFR > 60; GLUCOSE 118 mg/dL (70-104); POTASSIUM 3.4 mmol/L (3.5-5.1); SODIUM 145 mmol/L (136-145); TCO2 27 mmol/L (25-35)
[2019-05-09] MEDS ORDERED: CATAPRES PO SCH (13:00)
--- NOTE | 2019-05-09 14:26 | DISCHARGE SUMMARY ---
ADMISSION DATE: 05/02/2019 DISCHARGE DATE: 05/09/2019 CONSULTS: GI Dr. Odell. Orthopedic surgery, Dr. Rodriguez. PROCEDURES: EGD showing esophagitis, minimal stricture that did not require dilation. PERTINENT STUDIES: CT thoracic lumbar spine with nondisplaced posterior right rib fractures of the 11th and 12th ribs, fractures of the right-sided transverse processes of L2, L3, L4. Initial creatinine 2.2. Discharge creatinine 0.7. DISCHARGE DIAGNOSES: 1. Upper gastrointestinal bleed. 2. Esophagitis. 3. Acute kidney injury. 4. Hypothyroidism. 5. Coronary artery disease. 6. Generalized weakness. 7. Paroxysmal atrial fibrillation. 8. Rib fractures. 9. Lumbar spine transverse process fractures. 10. Hypertension. 11. Hypokalemia. HOSPITAL COURSE: The patient presented initially with complaints of multiple falls. On initial evaluation, she was found to have nondisplaced posterior rib fractures and right-sided transverse process fractures of L2, L3 and L4. Orthopedic surgery was consulted and evaluated the patient, but felt that these fractures were stable and nondisplaced. They did not require surgical intervention or brace. They recommended conservative and symptomatic treatment. The patient also had moderate acute kidney injury on admission with creatinine 2.2, was thought to be due to hypokalemia. She was given fluids and this trended down to normal with discharge creatinine of 0.7. The patient later had an episode of coffee-ground emesis. Had minor drop in hemoglobin from 9.3 to 8.4, but after that came back up on its own. GI evaluated the patient, performed EGD which showed esophagitis which they felt was likely the source of his mild bleeding. He was placed and continued on a PPI with no further issues. The patient has a history of paroxysmal atrial fibrillation with largely normal sinus rhythm during this hospitalization. Because of his falls and fractures and coffee-ground emesis, he was taken off his Eliquis and after discussion with his family, they desired to keep him off of that indefinitely. Because of the generalized weakness, he was evaluated for and approved to go to rehab. DISCHARGE VITALS: Temp 97.9 degrees, pulse 76, respirations 19, blood pressure 172/49, O2 saturation 92% on room air. DISCHARGE DIET: Cardiac. DISCHARGE MEDICATIONS: Pravastatin 80 mg p.o. at bedtime, hyoscyamine drops q. 4 hours p.r.n., acetaminophen 650 p.o. q. 8 hours p.r.n., hydralazine 75 mg p.o. t.i.d., carvedilol 25 mg p.o. t.i.d., clonidine oral 0.1 mg p.o. t.i.d., Multaq 200 mg p.o. b.i.d., Norvasc 10 mg p.o. daily, lisinopril 20 mg p.o. daily, Synthroid 75 mcg p.o. daily, Xanax 0.5 mg p.o. t.i.d. as needed, Cymbalta 60 mg p.o. daily, fluphenazine 1 mg p.o. daily, Protonix 40 mg p.o. b.i.d., sennosides/docusate 1 tablet p.o. b.i.d. as needed for constipation. Tramadol 50 mg q. 4-6 hours p.r.n. pain. PLAN: Patient discharging to rehab. Follow up with PCP. Follow up with GI in 4 to 6 weeks for repeat esophagogastroduodenoscopy. Greater than 30 minutes spent arranging discharge and counseling patient.
[2019-05-09 15:04] VITALS: BP 154/46
[2019-05-09] MEDS ORDERED: ZOVIRAX PO SCH (17:00)
== END 2019-05-09 18:00 | DRG 184 ==
LOC: P.ED 13:14 → SUATTDRO 18:48 → P.MEDSURG 18:48 → 3N 05-06 22:43
PROVIDERS: ATTEND Internal Medicine